=== PATIENT | male | born 1965 | race Caucasian/White ===

== ENCOUNTER → 2021-05-18 18:21 | Outpatient (CLI) | payer MEDICAID, SELFPAY | PROVIDERS: Visit Provider Family Medicine | DX: N20.0 Calculus of kidney (principal) | CPT/HCPCS: 87086 ==

== ENCOUNTER → 2021-06-04 14:51 | Outpatient (CLI) | payer MEDICAID, SELFPAY ==
--- NOTE | 2021-06-04 14:52 | CT_ITS ---
PROCEDURE: CT ABDOMEN PELVIS WO CON CLINICAL INDICATION: stone protocol COMPARISON: No exams were available for comparison TECHNIQUE: Axial images obtained with sagittal and coronal reformats. All CT scans at the facility use one or more dose reduction, viz: automated exposure control, ma/kV adjustment per patient size (including targeted exams where dose is matched to indication, i.e. head), or iterative reconstruction technique. FINDINGS: Lower thorax: No acute finding ABDOMEN: Liver: The liver is normal in size. There is mild diffuse hypodensity consistent with fatty infiltration. There are no focal lesions. Gallbladder: Post cholecystectomy Pancreas: No masses or peripancreatic fluid collections. Spleen: unremarkable there are a couple of calcifications within the spleen. Adrenals: unremarkable Kidneys/ureters: The kidneys are normal in size and no calculi and there is no evidence of obstructive uropathy of either kidney. ABDOMEN & PELVIS: Stomach bowel: Stomach is somewhat distended with ingested food particles and fluid and there are some areas of high density possibly representing ingestion of the ant acid. There are mildly dilated mid and distal fluid-filled loops of small bowel possibly reflecting some degree of enteritis. Peritoneum: No abnormal fluid collections. No obvious inflammatory changes. No free air. Lymph nodes: No enlarged lymph nodes apparent. Vasculature: No evidence of abdominal aortic aneurysm. No retroperitoneal hemorrhage evident. Bones: No acute fracture PELVIS: Reproductive: unremarkable Bladder: The bladder is decompressed but otherwise appears normal. There are no calculi within the urinary bladder. The prostate is normal in size. Appendix: I do not definitely identify the appendix but there are no pericecal inflammatory changes. IMPRESSION: Findings of mild hepatic steatosis, no renal calculi noted and there is no obstructive uropathy of either kidney Dictated by: Dr. Guicho Posadas MD 06/04/2021 15:46 Dr. Guicho Posadas MD in [place] 06/04/2021 15:46
== END ==
PROVIDERS: PCP Family Medicine; Visit Provider Family Medicine
DX: R10.9 Unspecified abdominal pain (principal)
CPT/HCPCS: 74176

== ENCOUNTER → 2021-06-11 19:50 | Outpatient (CLI) | payer MEDICAID, SELFPAY ==
[2021-06-11 20:00] LABS: Basophils # 0.1 K/mm3 (0-0.2); Basophils % 1.5 % (0.1-2.0); Eosinophils # 0.2 K/mm3 (0.0-0.4); Eosinophils % 2.5 % (0.1-12.0); Hematocrit 44.2 % (42.0-52.0); Hemoglobin 14.7 g/dL (14.1-18.0); Lymphocytes # 3.2 K/mm3 (0.7-4.5); Lymphocytes % 40.6 % (10-50); Mean Corpuscular HGB Conc 33.2 g/dL (31.8-35.4); Mean Corpuscular Hemoglobin 30.8 pg (27.0-31.2); Mean Corpuscular Volume 92.7 fl (80-94); Mean Platelet Volume 8.7 fl (7.4-10.4); Monocytes # 0.3 K/mm3 (0.1-1.0); Monocytes % 4.3 % (1.7-9.3); Neutrophils % 51.1 % (37.0-80.0); Platelet Count 308 K/mm3 (142-424); Red Blood Count 4.76 M/mm3 (4.60-6.20); White Blood Count 7.8 K/mm3 (4.8-10.8)
[2021-06-11 20:35] LABS: Alanine Aminotransferase 22 U/L (12-78); Albumin Level 4.5 g/dl (3.5-5.0); Albumin/Globulin Ratio 1.6 (1.1-1.8); Alkaline Phosphatase 96 U/L (38-126); Anion Gap 11.2 mEq/L (5-15); Aspartate Amino Transferase 37 U/L (17-59); Bilirubin,Total 0.3 mg/dl (0.2-1.3); Blood Urea Nitrogen 11 mg/dl (9-20); Calcium 9.1 mg/dl (8.4-10.2); Carbon Dioxide 34 mmol/L (22.0-30.0); Chloride 98 mmol/L (98-107); Estimated Glomerular Filt Rate 117 ml/min (>60); GFR (African American) 141 ML/MIN (>60); Globulin 2.9 g/dL (1.3-3.2); Glucose 119 mg/dl (74-100); Potassium 4.2 mmoL/L (3.5-5.1); Sodium 139 mmol/L (136-145); Total Protein,Serum 7.4 g/dl (6.3-8.2)
[2021-06-11 21:47] LABS: Amphetamine/Metha Screen,Urine Negative ng/ml (<1000)
[2021-06-11 21:48] LABS: Barbiturates Screen,Urine Negative ng/ml (<200)
[2021-06-11 21:49] LABS: Benzodiazepines Screen,Urine Negative ng/ml (<200)
[2021-06-11 21:50] LABS: Cannabinoid Screen,Urine Negative ng/ml (<50); Cocaine Screen,Urine Negative ng/ml (<300)
[2021-06-11 21:51] LABS: Methadone Screen,Urine Negative ng/ml (<300); Opiate Screen,Urine Positive ng/ml (<300)
[2021-06-11 21:52] LABS: Phencyclidine Screen,Urine Negative ng/ml (<25)
[2021-06-13 08:11] LABS: PSA, Free 0.05 ng/mL; Prostate Specific Ag 0.2 ng/mL (0.0-4.0)
== END ==
PROVIDERS: Visit Provider Family Medicine
DX: M54.9 Dorsalgia, unspecified (principal); Z87.442 Personal history of urinary calculi; R35.1 Nocturia
CPT/HCPCS: 80053; 80305; 84153; 84154; 85025; 87086

== ENCOUNTER 2021-09-01 21:14 | Emergency (ER) | payer MEDICAID, SELFPAY ==
[2021-09-01 21:50] VITALS: BP 155/87; PULSE 67; RESP 21; TEMP 36.7; O2SAT 96; BMI 41.9
[2021-09-01 22:48] VITALS: BMI 46.0
--- NOTE | 2021-09-01 22:49 | XR_ITS ---
PROCEDURE INFORMATION: Exam: XR Chest Exam date and time: 09/01/2021 10:49 PM Age: 55 years old Clinical indication: Shortness of breath; Additional info: SOA, anxiety TECHNIQUE: Imaging protocol: XR of the chest. Views: 2 views. COMPARISON: CT ABDOMEN PELVIS WO CON 06/04/2021 2:53 PM FINDINGS: Lungs: Bilateral scattered heterogeneous pulmonary opacities, infectious/inflammatory and/or pulmonary edema. Pleural spaces: No pleural effusion. No pneumothorax. Heart/Mediastinum: Unremarkable cardiomediastinal silhouette. Bones/joints: No acute osseous findings. IMPRESSION: Bilateral scattered heterogeneous pulmonary opacities, infectious/inflammatory and/or pulmonary edema. Recommend imaging follow-up until complete resolution.
[2021-09-01 22:54] LABS: Microscopic, Urine URINE MICROSCOPIC (MICROSCOPIC)
--- NOTE | 2021-09-01 22:54 | ECG_ITS ---
APPROVED REPORT Exam: Resting ECG HR:61 bpm ECG Measurements Heart Rate 61 AXES DE 185 P 58 QRSd 91 QRS 38 QT 395 T 58 QTc 399 Conclusion SINUS RHYTHM NORMAL ECG UNCONFIRMED REPORT Electronically signed by : Fernando Trammell MD 09/02/2021 18:46:07
[2021-09-01 22:57] LABS: Appearance,Urine CLEAR (Clear); Bilirubin,Urine Negative (Negative); Blood, Urine Negative (Negative); Color,Urine YELLOW (Yellow); Glucose,Urine (UA) Negative (Negative); Ketones,Urine Negative (Negative); Leukocyte Esterase,Urine Negative (Negative); Nitrate,Urine Negative (Negative); PH,Urine 5.5 (5.0-8.5); Protein,Urine Negative (Negative); Specific Gravity, Urine >= 1.030 (1.005-1.030); Urobilinogen,Urine 0.2 EU/dl (0.2)
[2021-09-01 23:00] LABS: Basophils # 0.1 K/mm3 (0-0.2); Eosinophils # 0.1 K/mm3 (0.0-0.4); Eosinophils % 1.8 % (0.1-12.0); Hematocrit 40.9 % (42.0-52.0); Hemoglobin 13.2 g/dL (14.1-18.0); Lymphocytes # 1.9 K/mm3 (0.7-4.5); Lymphocytes % 35.1 % (10-50); Mean Corpuscular HGB Conc 32.3 g/dL (31.8-35.4); Mean Corpuscular Hemoglobin 30.2 pg (27.0-31.2); Mean Corpuscular Volume 93.5 fl (80-94); Mean Platelet Volume 7.7 fl (7.4-10.4); Monocytes # 0.3 K/mm3 (0.1-1.0); Monocytes % 5.5 % (1.7-9.3); Neutrophils # 3.1 K/mm3 (1.8-7.8); Neutrophils % 56.5 % (37.0-80.0); Platelet Count 362 K/mm3 (142-424); Red Blood Count 4.37 M/mm3 (4.60-6.20); Red Cell Distribution Width 13.4 % (11.5-17.5); White Blood Count 5.5 K/mm3 (4.8-10.8)
[2021-09-01 23:04] LABS: Alanine Aminotransferase 30 U/L (12-78); Albumin Level 4.1 g/dl (3.5-5.0); Albumin/Globulin Ratio 1.2 (1.1-1.8); Alkaline Phosphatase 92 U/L (38-126); Anion Gap 9.5 mEq/L (5-15); Aspartate Amino Transferase 31 U/L (17-59); Bilirubin,Total 0.5 mg/dl (0.2-1.3); Blood Urea Nitrogen 19 mg/dl (9-20); Calcium 9.5 mg/dl (8.4-10.2); Carbon Dioxide 36 mmol/L (22.0-30.0); Chloride 100 mmol/L (98-107); Creatinine Clearance Estimated 95 mL/min (50-200); Estimated Glomerular Filt Rate 117 ml/min (>60); GFR (African American) 141 ML/MIN (>60); Globulin 3.3 g/dL (1.3-3.2); Glucose 131 mg/dl (74-100); Potassium 3.5 mmoL/L (3.5-5.1); Sodium 142 mmol/L (136-145); Total Protein,Serum 7.4 g/dl (6.3-8.2)
[2021-09-01 23:05] LABS: Bacteria,Urine Trace /lpf; Calcium Oxalate Crystals,Urine 2+ /lpf; Squamous Epithelial Cell,Urine Occasional #/hpf (0-5)
[2021-09-01 23:10] LABS: C-Reactive Protein 47.2 mg/L (0-4)
--- NOTE | 2021-09-01 23:11 | HMH.EDSOB ---
ED Disposition Clinical Impression: Bronchitis Disposition: Home, Self-Care Condition on Discharge: Good Instructions: DI for Cough -- Adult Additional Instructions: use meds and call pcp in am Prescriptions: predniSONE [Prednisone 20mg Tab] 20 mg PO BID #10 tab Transmission Status: Pending to [facility] Azithromycin [Zithromax 250mg tab] 250 mg PO DIRECTED #6 tab Transmission Status: Pending to [facility] Referrals: Lanre Elias MD [Primary Care Provider] - - Critical Care Critical Care Time: No Attestation: On 09/01/21, the high probability of a clinically significant, sudden or life threatening deterioration of the following system(s) required my full and direct attention, intervention and personal management. The time I documented below is in addition to time spent performing reported procedures but includes the following listed in this critical care notation. Medical Decision Making - Medical Records Medical records reviewed: Yes: I reviewed the patient's medical records. - Jesus Manuel Inquiry Pt receiving controlled substance: No Vital Signs: 09/01/21 21:50 Temperature 98.1 F Temperature Source Oral Pulse Rate [Right] 67 Respiratory Rate 21 Blood Pressure [Right Arm] 155/87 H Blood Pressure Mean [Right Arm] 109 Blood Pressure Source [Right Arm] Automatic Cuff 02 Sat by Pulse Oximetry 96 Oxygen Delivery Method Room Air - Lab Data Lab results reviewed: Yes: I reviewed the patient's lab results. Lab Results 09/01/21 22:13: WBC 5.5, RBC 4.37 L, Hgb 13.2 L, Hct 40.9 L, MCV 93.5, MCH 30.2, MCHC 32.3, RDW 13.4, Plt Count 362, MPV 7.7, Neut % (Auto) 56.5, Lymph % (Auto) 35.1, [place] % (Auto) 5.5, Eos % (Auto) 1.8, Baso % (Auto) 1.0, Neut # (Auto) 3.1, Lymph # (Auto) 1.9, [place] # (Auto) 0.3, Eos # (Auto) 0.1, Baso # (Auto) 0.1, ESR 88 H 09/01/21 22:13: Sodium 142, Potassium 3.5, Chloride 100, Carbon Dioxide 36 H, Anion Gap 9.5, BUN 19, Creatinine 0.70, Estimated Creat Clear 95, Estimated GFR 117, Est GFR ( Amer) 141, Glucose 131 H, Calcium 9.5, Total Bilirubin 0.5, AST 31, ALT 30, Alkaline Phosphatase 92, Troponin I < 0.01, C-Reactive Protein 47.2 H, Total Protein 7.4, Albumin 4.1, Globulin 3.3 H, Albumin/Globulin Ratio 1.2, Procalcitonin 0.046 09/01/21 22:13: Urine Color Yellow, Urine Appearance Clear, Urine pH 5.5, Ur Specific [place] >= 1.030, Urine Protein Negative, Urine Glucose (UA) Negative, Urine Ketones Negative, Urine Blood Negative, Urine Nitrate Negative, Urine Bilirubin Negative, Urine Urobilinogen 0.2, Ur Leukocyte Esterase Negative, Ur Squamous Epith Cells Occasional, Calcium Oxalate Crystal 2+, Urine Bacteria Trace 09/01/21 23:45: SARS-CoV-2 (PCR) Not detected, Influenza A Untype (PCR) Not detected, Influenza Type B (PCR) Not detected Result diagrams: 09/01/21 22:13 09/01/21 22:13 Orders (Tests/Meds): ED MEDICATIONS Discontinued Medications Generic Name Dose Route Start Last Admin Trade Name Freq PRN Reason Stop Dose Admin Levofloxacin 500 mg 09/02/21 00:14 Levofloxacin 500mg Tab PO 09/02/21 00:15 ONCE ONE Methylprednisolone Sodium Succinate 125 mg 09/02/21 00:14 Methylprednisolone Sod Succ 125mg Vial IV 09/02/21 00:15 ONCE ONE ORDERS Category Date Time Status Troponin I Q3H Lab 09/02/21 02:00 Ordered Troponin I Q3H Lab 09/02/21 05:00 Ordered - Radiology Data #1 Image(s): Chest Image Reviewed: Yes I have reviewed radiologist's interpretation Preliminary Findings: Abnormal (nonspecific ) - ECG Data Tracing #1 Normal Sinus Rhythm: Yes Ischemic changes: non-specific ST-T wave changes - DANIELLE Score for Non-Stemi Age of Patient: 50-59 years old Heart Rate: 50-69 bpm Systolic Blood Pressure: 140-159 mmHg Serum Creatinine: 0.40-0.79 mg/dl CHF [place] Class: I-No CHF Other Risk Factors: None Non-Stemi Risk Score: 72 Medical Decision Narrative: has clinical hx and xray consistent with acute res
[2021-09-01 23:20] LABS: Procalcitonin 0.046 ng/mL (0.0-2.0)
[2021-09-01 23:23] LABS: Erythrocyte Sedimentation Rate 88 mm/hr (0-20)
[2021-09-01 23:26] LABS: Troponin I < 0.01 ng/ml (0.00-0.034)
[2021-09-01 23:49] LABS: Coronavirus 19, PCR Not Detected (NotDetected); Influenza A, PCR Not Detected (NotDetected); Influenza B, PCR Not Detected (NotDetected)
[2021-09-02 00:20] VITALS: BP 156/85; PULSE 89; RESP 20; TEMP 36.8; O2SAT 95
== END 2021-09-02 00:25 | disposition home or self-care (01) ==
PROVIDERS: Emergency Provider Emergency Medicine; PCP Family Medicine
DX: J20.9 Acute bronchitis, unspecified (principal); F41.9 Anxiety disorder, unspecified; Z87.891 Personal history of nicotine dependence; Z20.822 Contact with and (suspected) exposure to COVID-19
CPT/HCPCS: 71046; 80053; 81001; 84145; 84484; 85025; 85651; 86140; 93005; 96374; 96375; 99283; C9803; U0003; U0005

== ENCOUNTER 2021-12-29 08:02 | Emergency (ER) | payer MEDICAID, SELFPAY ==
[2021-12-29 08:14] VITALS: BP 131/83; PULSE 85; RESP 18; TEMP 37.1; O2SAT 96; BMI 38.7
[2021-12-29 08:27] VITALS: BP 131/83; PULSE 83; RESP 18; TEMP 37.1; O2SAT 96; BMI 38.5
--- NOTE | 2021-12-29 08:28 | HMH.EDUTC ---
[facility] [place] Disposition Clinical Impression: Left lower lobe pneumonia Qualifiers: Pneumonia type: due to unspecified organism Qualified Code(s): J18.9 - Pneumonia, unspecified organism Disposition: Home, Self-Care Condition on Discharge: Good Instructions: Pneumonia-Adult Additional Instructions: Drink plenty of fluids. Take tylenol or ibuprofen for pain or fever. Take the medications as directed. Follow up with your regular doctor within 48 hours for a recheck. GO TO THE ER FOR ANY WORSENING SYMPTOMS Don't start the oral steroids until tomorrow, since you had the shot here today. Prescriptions: Amoxicillin/Potassium Clav [Amox-Clav 875-125 mg Tablet] 1 tab PO BID #20 tab Transmission Status: Received by [facility] Benzonatate [Benzonatate 100mg cap] 100 mg PO TIDP PRN #30 cap PRN Reason: Cough Transmission Status: Received by [facility] methylPREDNISolone [Medrol] 4 mg PO DIRECTED 6 Days #21 packet Transmission Status: Received by [facility] guaiFENesin [Mucinex 600mg tablet] 1 - 2 tab PO BIDP PRN #30 tab PRN Reason: Congestion Transmission Status: Received by [facility] Azithromycin [Z-Kendall 250mg Tab*] 250 mg PO UD DOSE PK #6 tab Transmission Status: Received by [facility] Referrals: Lanre Elias MD [Primary Care Provider] - Forms: Work/School Release Time of Disposition: 09:20 Medical Decision Making - Medical Records Medical records reviewed: No: I reviewed the patient's medical records. - Jesus Manuel Inquiry Pt receiving controlled substance: No Vital Signs: 12/29/21 08:14 12/29/21 08:27 12/29/21 09:41 Temperature 98.7 F 98.7 F 98.7 F Temperature Source Oral Oral Pulse Rate 83 Pulse Rate [Right Radial] 85 83 Respiratory Rate 18 18 18 Blood Pressure 131/83 Blood Pressure [Right Arm] 131/83 131/83 Blood Pressure Mean [Right Arm] 99 99 Blood Pressure Source [Right Arm] Automatic Cuff Blood Pressure Position [Right Arm] Sitting 02 Sat by Pulse Oximetry 96 96 Oxygen Delivery Method Room Air - Lab Data Lab results reviewed: Yes: I reviewed the patient's lab results. Lab Results 12/29/21 08:23: Influenza Type A Ag Negative, Influenza Type B Ag Negative 12/29/21 08:25: Group A Strep Rapid Negative Orders (Tests/Meds): ED MEDICATIONS Discontinued Medications Generic Name Dose Route Start Last Admin Trade Name Bandar PRN Reason Stop Dose Admin Ceftriaxone Sodium 1 gm 12/29/21 09:01 12/29/21 09:27 Ceftriaxone 1gm Vial IM 12/29/21 09:02 1 gm ONCE ONE Administration Lidocaine HCl 0 ml 12/29/21 09:01 12/29/21 09:27 Lidocaine 1% 5ml Pf Vial IM 12/29/21 09:02 2 ml ONCE ONE Administration Methylprednisolone Sodium Succinate 125 mg 12/29/21 09:01 12/29/21 09:27 Methylprednisolone Sod Succ 125mg Vial IM 12/29/21 09:02 125 mg ONCE ONE Administration ORDERS Category Date Time Status Strep Screen Confirmation Stat Micro 12/29/21 08:25 Received - Radiology Data #1 Image(s): Chest Image Reviewed: Yes I reviewed the patient's radiology image, Yes I have reviewed radiologist's interpretation Preliminary Findings: Abnormal FINAL REPORT CLINICAL HISTORY: chest congestion non productive cough COMPARISON: 09/01/2021 FINDINGS: TWO-VIEW CHEST The heart size is normal. The mediastinum is normal. There is left base opacity worrisome for pneumonia. There is no pneumothorax. IMPRESSION: Left base opacity worrisome for pneumonia. Reviewed, Interpreted and Dictated by Matthew Jefferson III, MD Transcribed by Shala Ivey Authenticated and [facility] Medical Decision Narrative: He refused a covid-19 swab. [facility] [place] HPI - General Stated complaint: cough, congestion soa Time Seen by Provider: 12/29/21 08:28 Mode of Arrival: Ambulatory Source of Information: Patient Shen
--- NOTE | 2021-12-29 08:37 | XR_ITS ---
FINAL REPORT CLINICAL HISTORY: chest congestion non productive cough COMPARISON: 09/01/2021 FINDINGS: TWO-VIEW CHEST The heart size is normal. The mediastinum is normal. There is left base opacity worrisome for pneumonia. There is no pneumothorax. IMPRESSION: Left base opacity worrisome for pneumonia. Reviewed, Interpreted and Dictated by Matthew Jefferson III, MD Transcribed by Shala Ivey Authenticated and [facility]
[2021-12-29 08:39] LABS: Strep Scrn Group A (Rapid) Negative (Negative)
[2021-12-29 08:41] LABS: UTC Influenza A Antigen Negative (Negative)
[2021-12-29 08:42] LABS: UTC Influenza B Antigen Negative (Negative)
[2021-12-29 09:41] VITALS: BP 131/83; PULSE 83; RESP 18; TEMP 37.1
== END 2021-12-29 09:44 | disposition home or self-care (01) ==
LOC: ER 08:16 → UTC 08:17
PROVIDERS: Emergency Provider Nurse Practitioner Family; PCP Family Medicine
DX: J18.9 Pneumonia, unspecified organism (principal)
CPT/HCPCS: 71046; 87430; 87804; 96372; 99212; G0463; J0696

== ENCOUNTER → 2022-01-19 08:52 | Outpatient (CLI) | payer MEDICAID, SELFPAY ==
--- NOTE | 2022-01-19 08:55 | XR_ITS ---
FINAL REPORT CLINICAL HISTORY: left shoulder pain FINDINGS: LEFT SHOULDER Two views were obtained. There is no acute fracture or dislocation. There is mild AC joint degenerative change. No soft tissue abnormality is identified. IMPRESSION: Mild AC joint degenerative change. Reviewed, Interpreted and Dictated by Matthew Jefferson III, MD Transcribed by Shala Ivey Authenticated and . [facility]
== END ==
PROVIDERS: PCP Family Medicine; Visit Provider Orthopaedic Surgery
DX: M25.512 Pain in left shoulder (principal)
CPT/HCPCS: 73030

== ENCOUNTER 2022-01-19 10:50 | Outpatient (RCR) | payer MEDICAID, SELFPAY | END 2022-01-19 11:50 | disposition home or self-care (01) | LOC: OT 10:50 | PROVIDERS: Visit Provider Orthopaedic Surgery | DX: M25.532 Pain in left wrist (principal); M25.531 Pain in right wrist | CPT/HCPCS: 97763 ==

== ENCOUNTER → 2022-03-01 11:04 | Outpatient (CLI) | payer MEDICAID, SELFPAY ==
--- NOTE | 2022-03-01 11:09 | XR_ITS ---
FINAL REPORT CLINICAL HISTORY: left wrist pain FINDINGS: LEFT WRIST Three views demonstrate no acute fracture or dislocation. There are mild and moderate degenerative changes which is worse at the distal radial ulnar joint. The soft tissues are unremarkable. IMPRESSION: Mild and moderate degenerative change with no acute bony abnormality. Reviewed, Interpreted and Dictated by Matthew Jefferson III, MD Transcribed by Lyndsey Kinsey Authenticated and [facility]
== END ==
PROVIDERS: PCP Family Medicine; Visit Provider Orthopaedic Surgery
DX: M25.532 Pain in left wrist (principal)
CPT/HCPCS: 73110

== ENCOUNTER 2022-03-06 09:18 | Emergency (ER) | payer MEDICAID, SELFPAY ==
[2022-03-06 09:34] VITALS: BP 165/87; PULSE 76; RESP 16; TEMP 36.8; O2SAT 96; BMI 35.5
--- NOTE | 2022-03-06 09:39 | HMH.EDUTC ---
[facility] [place] Clinical Impression: Low back pain Qualifiers: Chronicity: unspecified Back pain laterality: left Sciatica presence: without sciatica Qualified Code(s): M54.50 - Low back pain, unspecified Disposition: Home, Self-Care Condition on Discharge: Good Instructions: Low Back Pain, DI for Low Back Pain, DI for Chronic Pain -- Adult Additional Instructions: Make sure to follow up as discussed if pain continues or does not improve Return if needed Straight to ER if any life threatening symptoms Follow up with your Family Doctor if no improvement or any worsen of symptoms Referrals: Lanre Elias MD [Primary Care Provider] - As needed Time of Disposition: 09:54 Medical Decision Making - Jesus Manuel Inquiry Pt receiving controlled substance: No Jesus Manuel was queried for this patient: No Vital Signs: 03/06/22 09:34 Temperature 98.3 F Temperature Source Oral Pulse Rate [Left] 76 Respiratory Rate 16 Blood Pressure [Right Arm] 165/87 H Blood Pressure Mean [Right Arm] 113 02 Sat by Pulse Oximetry 96 - Lab Data Lab results reviewed: Yes: I reviewed the patient's lab results. Lab Results 03/06/22 09:45: Urine Color Yellow, Urine Appearance Slightly cloudy, Urine pH 6.0, Ur Specific [place] 1.020, Urine Protein Trace, Urine Glucose (UA) Negative, Urine Ketones Negative, Urine Blood Trace, Urine Nitrate Negative, Urine Bilirubin Negative, Urine Urobilinogen 0.2, Ur Leukocyte Esterase Negative Orders (Tests/Meds): ED MEDICATIONS Discontinued Medications Generic Name Dose Route Start Last Admin Trade Name Fernandezq PRN Reason Stop Dose Admin Ketorolac Tromethamine 60 mg 03/06/22 09:52 03/06/22 10:02 Ketorolac 60mg/2ml Vial IM 03/06/22 09:53 60 mg ONCE ONE Administration Methylprednisolone Sodium Succinate 125 mg 03/06/22 09:52 03/06/22 10:03 Methylprednisolone Sod Succ 125mg Vial IM 03/06/22 09:53 125 mg ONCE ONE Administration ORDERS Category Date Time Status Urine Culture Stat Micro 03/06/22 09:40 Received Medical Decision Narrative: Discussed with patient and recommended xray of Lspine and patient declined new injury or doing anything to hurt his back and/or transfer to the ED for further work up and Ct scan to r/o Kidney stone and patient refused states that he could not do the ct scan here due to he has claustrophobia and has to have Open CT and it is not available here Discussed with patient risks and he verbalized understanding and state just wants a shot and he will go home and follow up if no improvement to get an open Ct Scan Again discussed transfer to the ED for further work up and evaluation to R/o Kidney stones and patient declined [facility] [place] - General Stated complaint: left side pain Time Seen by Provider: 03/06/22 09:39 Mode of Arrival: Ambulatory Source of Information: Patient Limitations: No Limitations Description of Symptoms (Recalled from Triage Doc. by RN): patient comes in for left sided back pain. the pain is located on the lower left side and does not move. patient states that he has had this pain for 1 week HEENT Symptoms (Recalled from RN notes): No Resp Symptoms (Recalled from RN notes): No Skin Symptoms (Recalled from RN notes): No MS Symptoms (Recalled from RN notes): Yes (back pain) Functional Status (Recalled from RN notes): n/a - History of Present Illness Provider Complaint: Patient states that he has chronic back pain States that he has been having pain on the left lower back for about a week States that he is prescribed and they arent helping much States that pain has been going on close to a week and denies known injury States that he does have history of Kidney stones that he had to have removed a couple years ago but denies trouble urinating or having bowel movements - Related Data Previous Rx's Medication Instructions Recorded alprazolam 1 mg tablet 1 mg PO DAILY #15 tab 09/09/21 oxycodone-acetaminophen 5 mg-325 1 tab PO DAILY PRN #1
[2022-03-06 09:54] LABS: Apearance,Urine Slightly Cloudy (Clear); Color,Urine Yellow (Yellow)
[2022-03-06 09:55] LABS: Bilirubin,Urine Negative (Negative); Blood, Urine Trace (Negative); Glucose,Urine (UA) Negative (Negative); Ketones,Urine Negative (Negative); Protein,Urine Trace (Negative); UTC Leukocyte Esterase,Urine Negative (Negative); UTC Nitrate,Urine Negative (Negative); Urobilinogen,Urine 0.2 EU/dl (0.2)
[2022-03-06 10:17] VITALS: BP 165/87; PULSE 76; RESP 16; TEMP 36.8
== END 2022-03-06 10:21 | disposition home or self-care (01) ==
PROVIDERS: Emergency Provider Nurse Practitioner; PCP Family Medicine
DX: M54.50 Low back pain, unspecified (principal)
CPT/HCPCS: 81003; 87086; 87088; 87186; 96372; 99212; G0463

== ENCOUNTER → 2022-03-08 09:00 | Outpatient (CLI) | payer MEDICAID, SELFPAY ==
[2022-03-08 10:17] LABS: Chloride 101 mmol/L (98-107); Potassium 3.3 mmoL/L (3.5-5.1); Sodium 138 mmol/L (136-145)
[2022-03-08 10:19] LABS: Alanine Aminotransferase 36 U/L (12-78); Alkaline Phosphatase 84 U/L (38-126); Anion Gap 16.3 mEq/L (5-15); Aspartate Amino Transferase 46 U/L (17-59); Blood Urea Nitrogen 24 mg/dl (9-20); Carbon Dioxide 24 mmol/L (22.0-30.0); Estimated Glomerular Filt Rate 100 ml/min (>60); GFR (African American) 121 ML/MIN (>60)
[2022-03-08 10:20] LABS: Albumin/Globulin Ratio 1.4 (1.1-1.8); Calcium 9.4 mg/dl (8.4-10.2); Globulin 2.9 g/dL (1.3-3.2); Glucose 227 mg/dl (74-100); Total Protein,Serum 6.9 g/dl (6.3-8.2)
[2022-03-08 10:24] LABS: Bilirubin,Total < 0.1 mg/dl (0.2-1.3)
[2022-03-08 11:31] LABS: Basophils # 0.1 K/mm3 (0-0.2); Basophils % 0.8 % (0.1-2.0); Eosinophils # 0.1 K/mm3 (0.0-0.4); Eosinophils % 0.9 % (0.1-12.0); Hematocrit 45.7 % (42.0-52.0); Hemoglobin 14.3 g/dL (14.1-18.0); Lymphocytes # 1.9 K/mm3 (0.7-4.5); Lymphocytes % 20.4 % (10-50); Mean Corpuscular HGB Conc 31.3 g/dL (31.8-35.4); Mean Corpuscular Hemoglobin 30.5 pg (27.0-31.2); Mean Corpuscular Volume 97.5 fl (80-94); Mean Platelet Volume 8.7 fl (7.4-10.4); Monocytes # 0.5 K/mm3 (0.1-1.0); Monocytes % 5.5 % (1.7-9.3); Neutrophils # 6.6 K/mm3 (1.8-7.8); Neutrophils % 72.3 % (37.0-80.0); Platelet Count 286 K/mm3 (142-424); Red Blood Count 4.69 M/mm3 (4.60-6.20); Red Cell Distribution Width 13.9 % (11.5-17.5); White Blood Count 9.2 K/mm3 (4.8-10.8)
== END ==
PROVIDERS: PCP Family Medicine; Visit Provider Orthopaedic Surgery
DX: U07.1 COVID-19 (principal); G56.03 Carpal tunnel syndrome, bilateral upper limbs
CPT/HCPCS: 36415; 80053; 85025; C9803; U0003; U0005

== ENCOUNTER 2023-11-30 12:57 | Outpatient (CLI) | payer MEDICAID, SELFPAY ==
[2023-11-30 18:53] LABS: Basophils # 0.1 K/mm3 (0-0.2); Basophils % 2.1 % (0.1-2.0); Eosinophils # 0.2 K/mm3 (0.0-0.4); Eosinophils % 3.7 % (0.1-12.0); Hematocrit 42.3 % (42.0-52.0); Hemoglobin 14.1 g/dL (14.1-18.0); Lymphocytes # 2.4 K/mm3 (0.7-4.5); Lymphocytes % 38.8 % (10-50); Mean Corpuscular HGB Conc 33.3 g/dL (31.8-35.4); Mean Corpuscular Hemoglobin 31.6 pg (27.0-31.2); Mean Corpuscular Volume 94.9 fl (80-94); Mean Platelet Volume 8.5 fl (7.4-10.4); Monocytes # 0.3 K/mm3 (0.1-1.0); Monocytes % 4.6 % (1.7-9.3); Neutrophils # 3.2 K/mm3 (1.8-7.8); Neutrophils % 50.9 % (37.0-80.0); Platelet Count 228 K/mm3 (142-424); Red Blood Count 4.46 M/mm3 (4.60-6.20); Red Cell Distribution Width 14.2 % (11.5-17.5); White Blood Count 6.3 K/mm3 (4.8-10.8)
[2023-11-30 19:15] LABS: Alanine Aminotransferase 36 U/L (12-78); Albumin Level 4.2 g/dl (3.5-5.0); Albumin/Globulin Ratio 1.4 (1.1-1.8); Alkaline Phosphatase 83 U/L (38-126); Anion Gap 13.1 mEq/L (5-15); Aspartate Amino Transferase 46 U/L (17-59); Bilirubin,Total 0.5 mg/dl (0.2-1.3); Blood Urea Nitrogen 12 mg/dl (9-20); Calcium 9.4 mg/dl (8.4-10.2); Carbon Dioxide 30 mmol/L (22.0-30.0); Chloride 99 mmol/L (98-107); Chol/HDL Ratio 5.2 (1-3.5); Cholesterol 199 mg/dl (140-200); Estimated Glomerular Filt Rate 99 ml/min (>60); GFR (African American) 120 ML/MIN (>60); Globulin 3.1 g/dL (1.3-3.2); Glucose 149 mg/dl (74-100); HDL Cholesterol 38 mg/dl (40-60); Potassium 4.1 mmoL/L (3.5-5.1); Sodium 138 mmol/L (136-145); Total Protein,Serum 7.3 g/dl (6.3-8.2); Triglycerides 260 mg/dl (30-150); VLDL Cholesterol 52 mg/dL (0-40)
[2023-11-30 19:26] LABS: Direct LDL Cholesterol 119.39 mg/dL (100-129)
[2023-11-30 19:44] LABS: Prostate Specific Ag Screen 2.5 ng/ml (0.0-4.0)
== END 2023-11-30 23:59 | disposition home or self-care (01) ==
LOC: LAB.DROPOF 12-01 12:57
PROVIDERS: PCP Family Medicine; Visit Provider Family Medicine
DX: G56.00 Carpal tunnel syndrome, unspecified upper limb (principal); K76.0 Fatty (change of) liver, not elsewhere classified; R73.9 Hyperglycemia, unspecified; Z79.899 Other long term (current) drug therapy; Z12.5 Encounter for screening for malignant neoplasm of prostate
CPT/HCPCS: 80053; 80061; 85025; G0103